=== PATIENT | male | born 1980 | race Caucasian/White ===

== ENCOUNTER 2024-08-27 09:46 | Inpatient (IN) | payer MEDICAID, SELFPAY ==
[2024-08-27 09:48] VITALS: BP 175/101; PULSE 115; RESP 20; TEMP 36.6; O2SAT 97; BMI 29.1
[2024-08-27 10:35] VITALS: BP 158/99; PULSE 112; RESP 20; TEMP 36.6; O2SAT 99
[2024-08-27 10:47] VITALS: BP 142/89; PULSE 99; RESP 18; O2SAT 99
[2024-08-27 10:56] LABS: Alcohol, Blood (Medical)-Serum < 3.0 mg/dL
[2024-08-27 10:57] LABS: Absolute Lymphocyte Count 2.51 X10^3/uL (0.83-4.51); Absolute Neutrophil Count 7.4 X10^3/uL (2.0-7.7); Basophil# 0.08 X10^3/uL; Basophil% 0.7 % (0-1); Eosinophils% 1.7 % (0-5); Hematocrit 39.5 % (40-54); Hemoglobin 13.5 g/dL (13.0-16.5); Lymphocyte # 2.51 X10^3/ul (0.83-4.51); Lymphocyte % 21.9 % (19-41); Mean Corp Hgb Conc 34.2 g/dL (32-36); Mean Corpuscular Hgb 28.6 pg (27.0-32.0); Mean Corpuscular Volume 83.7 fL (80-94); Mean Platelet Vol. 8.4 fl (6.2-12.0); Monocyte# 1.26 X10^3/uL; NRBC Flagged by Analyzer 0 % (0-5); Neutrophil % 64.4 % (47-70); Platelet Count 294 K/mm3 (150-450); RBC Distribution Width SD 39.6 fl (35.1-43.9); Red Blood Count 4.72 M/mm3 (4.6-6.2); White Blood Count 11.5 K/mm3 (4.4-11.0)
[2024-08-27 11:02] LABS: ALB/GLOB Ratio 0.7 RATIO (0.9-2.4); AST(SGOT) 38 U/L (15-37); Alanine Aminotransfer ALT/SGPT 55 U/L (16-61); Albumin, Serum 3.2 g/dL (3.2-5.0); Alkaline Phosphatase 125 U/L (45-117); Anion Gap 9 (5-15); BUN 16 mg/dL (7-18); Calcium,Total 8.8 mg/dL (8.5-10.1); Chloride 103 mmol/L (98-107); Creatinine, Serum 0.89 mg/dL (0.70-1.30); EST Glomerular Filtration Rate 99 mL/min (>60); Est Glom Filt Rate - Afr Amer 120 mL/min (>60); Estimated Creatinine Clearance 129.53 ml/min; Globulin 4.6 g/dL (2.2-4.2); Glucose 100 mg/dL (74-106); Protein, Total 7.8 g/dL (6.4-8.2); Sodium Level 132 mmol/L (136-145)
[2024-08-27 11:23] LABS: Amphetamine Urine VISTA POSITIVE (<1000 ng/mL); Barbiturate Urine VISTA POSITIVE (< 200 ng/mL); Benzodiazepine Urine VISTA NEGATIVE (< 200 ng/mL); Cocaine Urine VISTA NEGATIVE (< 300 ng/mL); Ecstacy Urine VISTA POSITIVE (< 500 ng/mL); Methadone Urine VISTA NEGATIVE (< 300 ng/mL); PCP Urine VISTA NEGATIVE (< 25 ng/mL); THC Urine VISTA NEGATIVE (< 50 ng/mL); Vista UDS pH Range 5
[2024-08-27 12:38] VITALS: BP 144/95; PULSE 92; RESP 17; TEMP 36.7; O2SAT 98
[2024-08-27 12:47] VITALS: BMI 27.0
[2024-08-27 13:00] LABS: HIV - WCH Non-Reactive (Nonreactive); Hepatitis C Antibody REACTIVE (Nonreactive)
[2024-08-27] MEDS: Ibuprofen 400 MG Tablet 800 MG PO ×2 (14:29→22:22)
[2024-08-27 20:23] VITALS: BP 115/77; PULSE 72; RESP 18; TEMP 36.6; O2SAT 98
[2024-08-27] MEDS: Pramipexole Di-HCl 0.5 MG Tablet 1.5 MG PO (22:22)
[2024-08-28 02:34] VITALS: BP 112/71; PULSE 77; RESP 18; TEMP 36.4; O2SAT 97
[2024-08-28] MEDS: Methocarbamol 750 MG Tablet PO ×3 (02:44→21:11)
[2024-08-28] MEDS: cloNIDine HCl 0.1 MG Tablet PO ×3 (02:44→22:23)
[2024-08-28 06:11] VITALS: BP 117/74; PULSE 83; RESP 18; TEMP 36.3; O2SAT 95
[2024-08-28] MEDS: Ibuprofen 400 MG Tablet 800 MG PO ×3 (06:17→21:12)
[2024-08-28] MEDS: Pramipexole Di-HCl 0.5 MG Tablet 1.5 MG PO ×3 (06:17→21:11)
[2024-08-28 08:18] LABS: Hematocrit 35.9 % (40-54); Hemoglobin 12.2 g/dL (13.0-16.5); Mean Corpuscular Hgb 28.8 pg (27.0-32.0); Mean Corpuscular Volume 84.9 fL (80-94); Mean Platelet Vol. 8.6 fl (6.2-12.0); Platelet Count 228 K/mm3 (150-450); RBC Distribution Width CV 13.2 % (11.6-14.6); RBC Distribution Width SD 40.7 fl (35.1-43.9); Red Blood Count 4.23 M/mm3 (4.6-6.2); White Blood Count 5.8 K/mm3 (4.4-11.0)
[2024-08-28 09:00] LABS: Anion Gap 6 (5-15); BUN 10 mg/dL (7-18); BUN/Creat Ratio 13.5 RATIO (10-20); Calcium,Total 8.5 mg/dL (8.5-10.1); Chloride 105 mmol/L (98-107); Creatinine, Serum 0.74 mg/dL (0.70-1.30); EST Glomerular Filtration Rate 122 mL/min (>60); Est Glom Filt Rate - Afr Amer 148 mL/min (>60); Estimated Creatinine Clearance 141.28 ml/min; Glucose 101 mg/dL (74-106); Potassium 3.5 mmol/L (3.5-5.1); Sodium Level 138 mmol/L (136-145)
[2024-08-28 10:30] VITALS: BP 122/68; PULSE 74; RESP 18; TEMP 36.6; O2SAT 97
[2024-08-28] MEDS: Ondansetron 8 MG Tablet PO (10:53)
[2024-08-28] MEDS: Acetaminophen 325 MG Tablet 650 MG PO (10:54)
[2024-08-28] MEDS: Gabapentin 300 MG Capsule PO ×2 (10:54→21:11)
[2024-08-28] MEDS: hydrOXYzine PAM 25 MG Capsule 50 MG PO ×2 (10:55→18:47)
[2024-08-28] MEDS: Buprenorphine HCl 2 MG TAB.SUBL SL ×2 (11:45→18:46)
[2024-08-28 16:50] VITALS: BP 125/87; PULSE 79; RESP 16; TEMP 36.8; O2SAT 98
[2024-08-28 21:01] VITALS: BP 127/77; PULSE 75; RESP 18; TEMP 36.7; O2SAT 98
[2024-08-29 03:59] VITALS: BP 133/92; PULSE 77; RESP 18; TEMP 36.8; O2SAT 99
[2024-08-29] MEDS: Pramipexole Di-HCl 0.5 MG Tablet 1.5 MG PO ×3 (05:40→21:27)
[2024-08-29] MEDS: Ibuprofen 400 MG Tablet 800 MG PO ×3 (05:40→21:26)
[2024-08-29 08:03] VITALS: BP 130/92; PULSE 78; RESP 18; TEMP 36.3; O2SAT 100
[2024-08-29 14:11] VITALS: BP 124/82; PULSE 70; RESP 18; TEMP 37.2; O2SAT 98
[2024-08-29] MEDS: Ondansetron 8 MG Tablet PO (14:15)
[2024-08-29 21:15] VITALS: BP 152/98; PULSE 66; RESP 18; TEMP 36.4; O2SAT 100
[2024-08-29] MEDS: cloNIDine HCl 0.1 MG Tablet PO (21:27)
[2024-08-29] MEDS: Methocarbamol 750 MG Tablet PO (21:27)
[2024-08-29] MEDS: Dicyclomine 10 MG Capsule 20 MG PO (21:27)
[2024-08-30] MEDS: Ondansetron 8 MG Tablet PO (02:52)
[2024-08-30 02:54] VITALS: BP 132/94; PULSE 59; RESP 18; TEMP 36.6; O2SAT 97
[2024-08-30] MEDS: Ibuprofen 400 MG Tablet 800 MG PO (05:30)
[2024-08-30] MEDS: Pramipexole Di-HCl 0.5 MG Tablet 1.5 MG PO (05:30)
[2024-08-30 08:54] VITALS: BP 133/96; PULSE 63; RESP 18; TEMP 36.8; O2SAT 99
== END 2024-08-30 13:09 | disposition home or self-care (01) | DRG 773 ==
LOC: ED 11:13 → MS3 11:45
PROVIDERS: Admitting Provider Internal Medicine; Emergency Provider Emergency Medicine; PCP Nurse Practitioner Family; Visit Provider Internal Medicine
DX: F11.23 Opioid dependence with withdrawal (principal); B18.2 Chronic viral hepatitis C; F15.10 Other stimulant abuse, uncomplicated; G25.81 Restless legs syndrome; F17.210 Nicotine dependence, cigarettes, uncomplicated; Z79.899 Other long term (current) drug therapy
CPT/HCPCS: 36415; 80048; 80053; 80307; 82077; 85025; 85027; 86703; 86803; 97802; 99283